=== PATIENT | female | born 1955 | race Asian ===

== ENCOUNTER 2019-04-06 08:59 | Emergency (ER) | payer OTHER ==
[~2019-04-06] VITALS: Ht 172.7 cm; Wt 63.5 kg
[2019-04-06 09:02] VITALS: BP 156/84
[2019-04-06] MEDS ORDERED: KETOROLAC TROMETH 30 MG/ML 1ML VIAL IM ONE (10:30)
== END 2019-04-06 11:20 | disposition home or self-care (01) ==
LOC: EDBD 08:59 → ER 08:59
DX: M54.5 Low back pain (principal); R51 Headache; V43.62XA Car passenger injured in collision with other type car in traffic accident, initial encounter; Y93.89 Activity, other specified; Y92.488 Other paved roadways as the place of occurrence of the external cause; Y99.8 Other external cause status
CPT/HCPCS: 72100; 93005; 96372; 99283; J1885